=== PATIENT | female | born 1950 | race Caucasian/White ===

== ENCOUNTER → 2021-07-22 | Outpatient (CLI) | payer MEDICARE, OTHER ==
[2020-06-11 10:47] VITALS: BP 161/79
[~2021-07-22] MED LIST: AMOX1TAB61 PO; HYDR-2761 PO; INSU100I13 SQ; INSU100V6 SQ
--- NOTE | 2021-07-23 10:15 | KCIC ---
US THYROID History: Thyroid fullness Comparison: None. Technique: Multiple grayscale and color Doppler images of the thyroid gland were obtained. Findings: Right thyroid lobe: 6.5 x 3.2 x 3.0 cm. Left thyroid lobe: 6.4 x 2.6 x 2.9 cm. Isthmus: 0.8 cm. Enlarged, heterogeneous thyroid with thickened isthmus and multiple bilateral nodules. Nodule #1. Size: 2.1 x 1.6 x 2.1 cm Location: Right upper. Characteristics: Spongiform, comprised almost entirely cystic spaces. ACR TI-RADS risk category: TR1 (0 points): No fine-needle aspiration or follow-up required. Nodule #2. Size: 2.3 x 2.3 x 2.4 cm Location: Right lower. Characteristics: Solid, heterogeneously hypoechoic, indistinct borders, wider than tall, no echogenic foci ACR TI-RADS risk category: TR4 (4-6 points): FNA if 1.5 cm, follow-up if 1-1.4 cm in 1, 2, 3, and 5 y ears. Disposition: Recommend FNA. Nodule #3. Size: 2.7 x 2.3 x 2.1 cm Location: Left mid. Characteristics: Solid and cystic, heterogeneously echogenic, primarily hyperechoic to isoechoic, fletcher ler than wide, smooth borders, echogenic foci which are favored to represent colloid. ACR TI-RADS risk category: TR4 (4-6 points): FNA if 1.5 cm, follow-up if 1-1.4 cm in 1, 2, 3, and 5 y ears. Disposition: Recommend FNA. Nodule #4. Size: 2.3 x 1.9 x 1.9 cm Location: Left mid. Characteristics: Solid, hyperechoic, taller than wide, smooth margins, no echogenic foci ACR TI-RADS risk category: TR4 (4-6 points): FNA if 1.5 cm, follow-up if 1-1.4 cm in 1, 2, 3, and 5 y ears. Disposition: Recommend FNA. Bilateral cervical lymph nodes which demonstrate relatively prominent contours with loss of the fatty hilum including 2.6 x 1.3 x 1.3 cm in the left neck and 1.9 x 0.8 x 1.4 cm in the right neck. IMPRESSION: 1. Enlarged multinodular goiter with 3 moderately suspicious thyroid nodules for which FNA is recomm ended. 2. Left greater than right cervical lymph nodes which measure prominent contours and loss of the fat ty hilum, may represent reactive nodes, however malignancy is not excluded. Recommend correlation wit h thyroid FNA results and short interval 3 month follow-up cervical ultrasound to evaluate for resolu tion. ACR Thyroid Imaging, Reporting And Data System (TI-RADS): White Paper Of The ACR TI-RADS Committee. J ournal of the [employer], volume 14, issue 5, pages 587-595 (November 2016). Electronically signed by: Rivas Glez MD (07/23/2021 10:13 AM) [id number]
== END ==
LOC: KCIC US 12:32
PROVIDERS: ATTEND Nurse Practitioner
DX: E04.2 Nontoxic multinodular goiter (principal); E07.89 Other specified disorders of thyroid
CPT/HCPCS: 76536

== ENCOUNTER → 2021-08-19 | Outpatient (CLI) | payer MEDICARE, OTHER ==
[2020-06-11 10:47] VITALS: BP 161/79
--- NOTE | 2021-08-19 12:12 | RAD ---
EXAM: Sonographic guided bilateral thyroid fine-needle aspiration. HISTORY: 71-year-old female presents for sonographic guided fine-needle aspiration of 3 dominant nodu les demonstrated on a sonogram performed 07/22/2021. TECHNIQUE: The risks of the procedure discussed with the patient and written and verbal consent was o btained. A timeout was performed. Sonographic imaging of the thyroid was performed and the lesions ar e concerning were identified. These lesions measure 2.4 cm within the inferior right thyroid lobe, 2. 7 cm within the medial mid left thyroid lobe, and 2.3 cm within the lateral mid left thyroid lobe. Th e skin overlying this lesion was sterilely prepped, draped and infiltrated with 1 percent lidocaine. Multiple passes were made through each lesion with 25-gauge needles using sonographic guidance. Manua l compression was maintained until hemostasis was achieved. Sterile bandages were placed. The patient tolerated the procedure without immediate complication. IMPRESSION: Sonographic guided fine-needle aspiration a dominant thyroid nodule within the right thyr oid lobe and 2 dominant nodules within the left thyroid lobe. An addendum to this report will be subm itted when pathology results are available. Electronically signed by: Pamela Sterling MD (08/19/2021 12:10 PM) [id number]
== END | disposition home or self-care (01) ==
LOC: US 10:33
PROVIDERS: ATTEND Family Medicine
DX: E04.2 Nontoxic multinodular goiter (principal); Z79.4 Long term (current) use of insulin; Z79.899 Other long term (current) drug therapy; Z87.891 Personal history of nicotine dependence; Z98.890 Other specified postprocedural states
CPT/HCPCS: 10005; 10006; C1819